=== PATIENT | male | born 1995 | race Caucasian/White ===

== ENCOUNTER 2022-11-07 13:20 | Emergency (ER) | payer MEDICAID, SELFPAY ==
[2022-11-07 13:21] VITALS: BP 160/88; PULSE 104; RESP 16; TEMP 36.2; O2SAT 98; BMI 24.3
--- NOTE | 2022-11-07 13:49 | EX.ED.UPPERE ---
HPI History of Present Illness HPI Narrative: Patient presents with left hand injury that occurred today. Patient states he was using a hammer to break up a brick fireplace when he accidentally hit his left hand. Patient denies any paresthesias or weakness. Patient describes his pain as aching. Patient states it is worse with certain movements. Patient states it is better with rest. Patient states the pain is mainly over the proximal first and second metacarpal area. Patient denies any other injuries. Patient denies any radiation of the pain. Chief Complaint: Upper Extremity Injury Informant: patient Occured/Mechanism Mechanism/Context: Yes blunt trauma and Yes direct blow Onset/Context/Timing Onset: Today Context: Sudden Onset Timing: Continuous Quality of Pain: Aching Location: Left hand Worsened by: Movement Relieved by: Rest Associated Symptoms Associated Symptoms: Negative for Parasthesia, Weakness or Loss of Funtion [facility] Medical History (Updated 11/07/22 @ 14:[address] Bjorn Camacho DO) Insomnia Allergy/AdvReac Type Severity Reaction Status Date / Time codeine Allergy Other Verified 11/07/22 13:24 Surgical History (Updated 11/07/22 @ 13:[address] Bjorn Camacho DO) History of hip surgery History of nasal surgery [facility] ED Constitutional Constitutional ED: Denies chills or fever(s) Eyes Eyes: Denies blurry vision or change in vision ENT ENT ED: Denies rhinorrhea or sore throat Cardiovascular Cardiovascular: Denies chest pain or palpitations Respiratory/Chest Respiratory/Chest: Denies cough or dyspnea Gastrointestinal Gastrointestinal: Denies nausea or vomiting Genitourinary Genitourinary ED: Denies dysuria or hematuria Musculoskeletal Musculoskeletal: Denies back pain or neck pain Integumentary Denies abscess or rash Neurologic Neurologic: Denies headache(s) or weakness Allergic/Immunologic Allergic/Immunologic ED: Denies mouth swelling or urticaria EXAM Physical Exam Const Vital Signs: 11/07/22 13:21 Temperature 97.2 F L Temperature Source Temporal Pulse Rate 104 H Respiratory Rate 16 Blood Pressure 160/88 H Blood Pressure Mean 112 Pulse Ox 98 Oxygen Delivery Method Room Air Positive well nourished and well developed General Appearance ED: well developed and NAD HEENT Reports moist mucous membranes Neck full ROM and supple Extremity Extremity Narrative: There is tenderness with mild edema and ecchymosis over the dorsal aspect of the left hand over the proximal first and second metacarpal areas. There is no bony crepitance or step-off. There is good range of motion. Sensation was intact to light touch in all digits. Capillary refill was less than 2 seconds in all digits. Radial pulses are equal bilaterally. Strength is 5/5 in the radial, median, and ulnar areas. Neuro oriented x3, CN's II-XII intact bilaterally, moves all extremities, no focal motor deficits and no sensory deficits noted Sensorium / Orientation: alert Motor Exam: strength 5/5 throughout Psych mental status grossly normal MDM MDM MDM Narrative Medical decision making narrative: Differential diagnosis includes contusion and fracture. X-rays of the left hand will be obtained to assess for fracture. Radiography Diagnostic Testing: X-rays of the right hand were obtained. There are 3 views. On my independent interpretation, there is no acute fracture. There is no dislocation. There is no soft tissue swelling. Radiologist also interpreted the x-rays and agrees. Treatment and Re-Evaluation Narrative: Patient was advised of his findings. Patient was instructed to ice and elevate the left hand. Patient was instructed to take Tylenol or ibuprofen as needed for pain. Patient was instructed to follow-up with his primary care physician in 5 to 7 days. Patient understood and was agreeable with the plan. All questions were answered. Discharge Plan Triage Chief Complaint: Upper Extremity Injury ED Provider: Bjorn Camacho Dx/Rx/DC Orders Clinical Impression: Contusion of left hand Instructions: ED Hand Contusion Primary Care Provider: Care Physician,No Primary Referrals: Glo Quinones MD [Med Staff - Active Staff] - 5-7 Days Care Physician,No Primary [Primary Care Provider] - Disposition Disposition: Home, Self Care
--- NOTE | 2022-11-07 13:56 | RAD_ITS ---
INDICATION: Injury/Pain EXAMINATION/TECHNIQUE: X-RAY - LEFT XR Hand Min 3 Views 3 VIEWS COMPARISON: None. FINDINGS: SOFT TISSUES: No soft tissue swelling or gas. No radiopaque foreign body. BONES/JOINTS: No acute fracture or subluxation.. Normal alignment. Preservation of the joint space.. No sclerotic or destructive changes observed. RAD/Hand Min 3 Views IMPRESSION: Negative. Electronically Signed: Kt Kwong MD at 14:23 EST ,
== END 2022-11-07 14:57 | disposition home or self-care (01) ==
PROVIDERS: Emergency Provider Emergency Medicine; Visit Provider Emergency Medicine
DX: S60.222A Contusion of left hand, initial encounter (principal); W27.8XXA Contact with other nonpowered hand tool, initial encounter
CPT/HCPCS: 73130; 99282

== ENCOUNTER 2023-03-25 09:41 | Emergency (ER) | payer MEDICAID, SELFPAY ==
[2023-03-25 09:42] VITALS: BP 100/75; PULSE 89; RESP 14; TEMP 36.6; O2SAT 96; BMI 29.1
--- NOTE | 2023-03-25 11:00 | EX.ED.DYSGE1 ---
HPI History of Present Illness Chief Complaint: Rash Informant: patient Onset/Context/Timing Onset: Days (3-4) Context: Gradual Onset Timing: Continuous Quality: Pruritic Location: Bilateral lower legs, left wrist, and abdomen Worsened by: Nothing Relieved by: Nothing Narrative Narrative: Patient presents with a rash that has been getting worse over the past 3 to 4 days. Patient states she was walking in the [place] recently. Patient states the rash started on his lower legs then spread to his left wrist and to his abdomen. Patient states the rash is pruritic. Patient states nothing makes it better and nothing makes it worse. Patient denies any rash over the face. Patient denies any difficulty breathing or difficulty swallowing. [facility] Medical History Insomnia Home Medications hydrocortisone 2.5 % topical cream 1 applic topical BID 7 days #20 grams 03/25/23 [Rx Last Taken Unknown] Allergy/AdvReac Type Severity Reaction Status Date / Time codeine Allergy Other Verified 03/25/23 09:42 Surgical History History of hip surgery History of nasal surgery Social History Smoking Status: Never smoker ROS ROS ED Constitutional Constitutional ED: Denies chills or fever(s) Eyes Eyes: Denies blurry vision or change in vision ENT ENT ED: Denies rhinorrhea or sore throat Cardiovascular Cardiovascular: Denies chest pain or palpitations Respiratory/Chest Respiratory/Chest: Denies cough or dyspnea Gastrointestinal Gastrointestinal: Denies nausea or vomiting Genitourinary Genitourinary ED: Denies dysuria or hematuria Musculoskeletal Musculoskeletal: Denies back pain or neck pain Integumentary Reports rash; Denies abscess Neurologic Neurologic: Denies headache(s) or weakness Allergic/Immunologic Allergic/Immunologic ED: Denies mouth swelling or urticaria EXAM Physical Exam Const Vital Signs: 03/25/23 09:42 Temperature 98 F Temperature Source Temporal Pulse Rate 89 Respiratory Rate 14 Blood Pressure 100/75 Blood Pressure Mean 83 Pulse Ox 96 Oxygen Delivery Method Room Air Positive well nourished and well developed General Appearance ED: well developed and NAD HEENT Reports moist mucous membranes Neck supple and no JVD Neuro oriented x3, CN's II-XII intact bilaterally and no sensory deficits noted Sensorium / Orientation: alert Motor Exam: strength 5/5 throughout Psych mental status grossly normal Skin Skin Narrative: There is a patchy erythematous rash over the lower legs, left wrist, and abdomen. There are areas of linear vesicles. There is no discharge or drainage noted. There is some mild crusting noted. There are no petechia noted. There is no involvement of mucous membranes. There is no sloughing of the skin. MDM MDM MDM Narrative Medical decision making narrative: Patient was advised that the rash is consistent with poison marni. Patient was given a prescription for hydrocortisone cream. Patient was instructed to follow-up with his primary care physician in 5 to 7 days. Patient was instructed return if worse in any way. Patient understood and was agreeable with the plan. All questions were answered. Discharge Plan Triage Chief Complaint: Rash ED Provider: Bjorn Camacho Dx/Rx/DC Orders Clinical Impression: Rhus dermatitis Instructions: ED Poison Marni Rash Prescriptions: New hydrocortisone 2.5 % cream 1 applic topical BID 7 Days Qty: 20 0RF Primary Care Provider: Care Physician,No Primary Referrals: Dereck Tee MD [Med Staff - [employer]] - 5-7 Days Care Physician,No Primary [Primary Care Provider] - Disposition Disposition: Home, Self Care
[2023-03-25 11:13] VITALS: RESP 16
== END 2023-03-25 11:14 | disposition home or self-care (01) ==
PROVIDERS: Emergency Provider Emergency Medicine; Visit Provider Emergency Medicine
DX: L23.7 Allergic contact dermatitis due to plants, except food (principal)
CPT/HCPCS: 99282